=== PATIENT | male | born 1975 | race African-American/Black ===

== ENCOUNTER 2017-09-17 00:44 | Inpatient (IN) ==
[2017-09-17] MEDS ORDERED: ONDANSETRON 4 MG/2 ML VIAL IV STA (02:24)
[2017-09-17] MEDS ORDERED: HYDROmorphone 2 MG/1 ML VIAL IV STA (02:24)
[2017-09-17] MEDS ORDERED: SODIUM CHLORIDE 0.9% 1,000 ML IV STA (02:24)
[2017-09-17 03:19] LABS: Basophils % 0.3 % (0.0-0.8); Eosinophils # 0.2 10*3/uL (0.0-0.87); Eosinophils % 3.7 % (0.00-10.9); Hematocrit 45.4 VOL% (42.0-52.0); Hemoglobin 13.8 GM/DL (14.0-18.0); Immature Granulocytes % 0.3 %; Immature Granulocytes Absolute 0.02 #; Lymphocytes # 2.5 10*3/uL (1.4-4.0); Lymphocytes % 40.7 % (21.2-54.2); Mean Corpuscular HGB Conc 30.4 GM/DL (32-36); Mean Corpuscular Hemoglobin 23 PG (27-34); Mean Platelet Volume 9.7 FL (9.6-12.0); Monocytes # 0.3 10*3/uL (0.11-0.8); Monocytes % 5.3 % (1.7-12.7); Neutrophils # 3.1 10*3/uL (1.4-7.4); Neutrophils % 49.7 % (38.7-73.9); Platelet Count 174 T/CUMM (130-400); Red Blood Count 6.05 MC/CUMM (3.8-5.5); Red Cell Distribution Width 15.7 % (9.3-17.3); White Blood Count 6.2 T/CUMM (4-12)
[2017-09-17] MEDS ORDERED: ONDANSETRON 4 MG/2 ML VIAL ONE (03:33)
[2017-09-17] MEDS ORDERED: HYDROmorphone 2 MG/1 ML VIAL ONE (03:33)
[2017-09-17 04:04] LABS: Alanine Aminotransferase 58 U/L (16-61); Albumin 3.7 G/DL (3.4-5.0); Alkaline Phosphatase 105 U/L (45-117); Aspartate Amino Transferase 26 U/L (0-37); Bilirubin,Total < 0.39 MG/DL (0.2-1.0); Blood Urea Nitrogen 20 MG/DL (7-18); Calcium 9.2 MG/DL (8.5-10.1); Glucose 97 MG/DL (74-106); Osmolality,Calculated 279.5 MOS/KG (273-304); Sodium 139 MMOL/L (136-145); Total Protein 6.5 G/DL (6.4-8.3)
[2017-09-17] MEDS ORDERED: LEVOFLOXACIN INJ 750 MG in PREMIX 1 EACH IV STA (06:01)
[2017-09-17] MEDS ORDERED: metroNIDAZOLE INJ 500 MG in PREMIX 1 EACH IV STA (06:01)
[2017-09-17] MEDS ORDERED: metroNIDAZOLE 500 MG/100 ML PREMIX IV ONE (06:08)
[2017-09-17] MEDS ORDERED: LEVOFLOXACIN INJ 150 ML IV ONE (07:10)
[2017-09-17] MEDS ORDERED: ONDANSETRON 4 MG/2 ML VIAL IV PRN (07:23)
[2017-09-17] MEDS ORDERED: NICOTINE 21 MG/24 HR PATCH TRANSDERM PRN (07:23)
[2017-09-17] MEDS: SODIUM CHLORIDE 0.9% 1,000 ML IV SCH ×2 (07:32→19:53)
[2017-09-17 07:46] LABS: PT Patient Result 10.6 SECS; Partial Thromboplastin Time 30.3 SECS (0-40)
[2017-09-17] MEDS ORDERED: PANTOPRAZOLE 40 MG VIAL IV SCH (09:00)
[2017-09-17] MEDS ORDERED: LISINOPRIL 20 MG TABLET PO SCH (12:30)
[2017-09-17] MEDS: MORPHINE 2 MG/1 ML SYRINGE IV PRN ×3 (15:11→22:33)
[2017-09-17] MEDS: metroNIDAZOLE INJ 500 MG in PREMIX 1 EACH IV SCH ×2 (15:16→19:50)
[2017-09-17] MEDS: amLODIPine 10 MG TABLET PO SCH (15:27)
[2017-09-17] MEDS: ATENOLOL 50 MG TABLET PO SCH (15:33)
[2017-09-17 17:56] LABS: % Iron Saturation 14.8 % (18-50); Ferritin 80.4 ng/ml (26-388)
[2017-09-17 19:04] LABS: Hepatitis A Ab IgM Quant 0.09 Index; Hepatitis A Ab IgM Result Negative (Negative); Hepatitis B Core IgM Quant 0.13 Index; Hepatitis B Core IgM Result Negative (Negative); Hepatitis B Surface Ag Quant < 0.10 Index; Hepatitis B Surface Ag Result Negative (Negative); Hepatitis C Virus Ab Quant 0.16 Index; Hepatitis C Virus Ab Result Negative (Negative)
[2017-09-18] MEDS: metroNIDAZOLE INJ 500 MG in PREMIX 1 EACH IV SCH ×2 (00:55→05:54)
[2017-09-18] MEDS: SODIUM CHLORIDE 0.9% 1,000 ML IV SCH (00:55)
[2017-09-18] MEDS: MORPHINE 2 MG/1 ML SYRINGE IV PRN ×2 (01:33→09:50)
[2017-09-18 04:38] LABS: Basophils % 0.3 % (0.0-0.8); Eosinophils # 0.2 10*3/uL (0.0-0.87); Eosinophils % 2.5 % (0.00-10.9); Hematocrit 39.6 VOL% (42.0-52.0); Immature Granulocytes % 0.1 %; Immature Granulocytes Absolute 0.01 #; Lymphocytes # 2.4 10*3/uL (1.4-4.0); Lymphocytes % 34.5 % (21.2-54.2); Mean Corpuscular HGB Conc 30.3 GM/DL (32-36); Mean Corpuscular Hemoglobin 23 PG (27-34); Mean Corpuscular Volume 75.4 FL (87-102); Mean Platelet Volume 10.8 FL (9.6-12.0); Monocytes # 0.4 10*3/uL (0.11-0.8); Monocytes % 6.2 % (1.7-12.7); Neutrophils % 56.4 % (38.7-73.9); Platelet Count 230 T/CUMM (130-400); Red Blood Count 5.25 MC/CUMM (3.8-5.5); Red Cell Distribution Width 15.1 % (9.3-17.3); White Blood Count 7.1 T/CUMM (4-12)
[2017-09-18 05:05] LABS: Calcium 8.5 MG/DL (8.5-10.1); Osmolality,Calculated 283.1 MOS/KG (273-304)
[2017-09-18] MEDS ORDERED: CIPROFLOXACIN INJ 400 MG in PREMIX 1 EACH IV SCH (07:00)
[2017-09-18] MEDS: amLODIPine 10 MG TABLET PO SCH (09:47)
[2017-09-18] MEDS: CIPROFLOXACIN 500 MG TABLET PO SCH ×2 (09:47→20:55)
[2017-09-18] MEDS: metroNIDAZOLE 500 MG TABLET PO SCH ×3 (09:47→20:55)
[2017-09-18] MEDS: ATENOLOL 50 MG TABLET PO SCH (09:47)
[2017-09-19 08:04] VITALS: BP 141/94
[2017-09-19] MEDS: CIPROFLOXACIN 500 MG TABLET PO SCH (11:08)
[2017-09-19] MEDS: amLODIPine 10 MG TABLET PO SCH (11:08)
[2017-09-19] MEDS: ATENOLOL 50 MG TABLET PO SCH (11:08)
[2017-09-19] MEDS: metroNIDAZOLE 500 MG TABLET PO SCH (11:08)
== END 2017-09-19 11:28 | disposition home or self-care (01) | DRG 395 ==
LOC: N.ED 00:44 → N.EDINP 06:03 → N.3E 09:28
PROVIDERS: ADMIT Internal Medicine Cardiovascular Disease; ATTEND Internal Medicine Cardiovascular Disease

== ENCOUNTER 2018-04-25 14:06 | Inpatient (IN) ==
[2018-04-25 16:11] LABS: Basophils % 0.3 % (0.0-0.8); Eosinophils # 0.3 10*3/uL (0.0-0.87); Eosinophils % 3.9 % (0.00-10.9); Hematocrit 43.9 VOL% (42.0-52.0); Hemoglobin 13.6 GM/DL (14.0-18.0); Immature Granulocytes % 0.1 %; Immature Granulocytes Absolute 0.01 #; Lymphocytes # 1.9 10*3/uL (1.4-4.0); Lymphocytes % 24.9 % (21.2-54.2); Mean Corpuscular Hemoglobin 23 PG (27-34); Mean Corpuscular Volume 72.8 FL (87-102); Monocytes # 0.6 10*3/uL (0.11-0.8); Monocytes % 8.5 % (1.7-12.7); Neutrophils # 4.6 10*3/uL (1.4-7.4); Neutrophils % 62.3 % (38.7-73.9); Platelet Count 236 T/CUMM (130-400); Red Blood Count 6.03 MC/CUMM (3.8-5.5); Red Cell Distribution Width 17.8 % (9.3-17.3); White Blood Count 7.4 T/CUMM (4-12)
[2018-04-25 16:20] LABS: PT Patient Result 10.7 SECS
[2018-04-25 16:31] LABS: Alanine Aminotransferase 34 U/L (16-61); Albumin 3.7 G/DL (3.4-5.0); Alkaline Phosphatase 115 U/L (45-117); Aspartate Amino Transferase 21 U/L (0-37); Bilirubin,Total < 0.39 MG/DL (0.2-1.0); Blood Urea Nitrogen 14 MG/DL (7-18); Calcium 8.5 MG/DL (8.5-10.1); Glucose 93 MG/DL (74-106); Potassium 4.1 MMOL/L (3.5-5.1); Sodium 143 MMOL/L (136-145); Total Protein 7.2 G/DL (6.4-8.3)
[2018-04-25] MEDS ORDERED: MORPHINE 4 MG/1 ML VIAL IV STA (16:51)
[2018-04-25] MEDS ORDERED: ALUM/MAG/SIMETH/LIDO VISC 1:1 30 ML BOTTLE PO STA (16:51)
[2018-04-25] MEDS ORDERED: ASPIRIN 325 MG TABLET PO STA (16:51)
[2018-04-25] MEDS ORDERED: ALBUTEROL/IPRATROPIUM 3 ML NEB RESP TX STA (16:51)
[2018-04-25] MEDS ORDERED: methylPREDNISolone SOD SUC 125 MG/2 ML VIAL IV STA (16:51)
[2018-04-25] MEDS ORDERED: NITROGLYCERIN 2% OINT 1 INCH/GM PACK TOP STA (16:51)
[2018-04-25] MEDS ORDERED: FUROSEMIDE 40 MG/4 ML VIAL IV STA (16:51)
[2018-04-25] MEDS ORDERED: ONDANSETRON 4 MG/2 ML VIAL IV STA (16:51)
[2018-04-25] MEDS ORDERED: hydrALAZINE 20 MG/1 ML VIAL IV STA ×2 (16:53→17:21)
[2018-04-25] MEDS ORDERED: methylPREDNISolone SOD SUC 40 MG/1 ML VIAL IV SCH (18:30)
[2018-04-25] MEDS: ALBUTEROL/IPRATROPIUM 3 ML NEB RESP TX SCH (19:34)
[2018-04-25 19:52] LABS: Risk Ratio 4.37
[2018-04-25] MEDS: MONTELUKAST 10 MG TABLET PO SCH (20:45)
[2018-04-25] MEDS: methylPREDNISolone SOD SUC 125 MG/2 ML VIAL IV SCH (20:45)
[2018-04-25] MEDS: cefTRIAXone 1,000 MG in SYRINGE 1 EACH IV SCH (20:45)
[2018-04-25] MEDS ORDERED: CARVEDILOL 6.25 MG TABLET PO SCH (21:00)
[2018-04-25] MEDS ORDERED: ALBUTEROL/IPRATROPIUM 3 ML NEB RESP TX ONE (22:53)
[2018-04-25] MEDS ORDERED: ONDANSETRON 4 MG/2 ML VIAL IV PRN (22:54)
[2018-04-25] MEDS ORDERED: PNEUMOCOCCAL VACCINE (23 VALENT) 0.5 ML VIAL IM ONE (23:57)
[2018-04-26] MEDS ORDERED: cloNIDine 0.1 MG TABLET PO PRN (00:45)
[2018-04-26] MEDS: ALBUTEROL/IPRATROPIUM 3 ML NEB RESP TX SCH ×4 (01:00→19:56)
[2018-04-26] MEDS: ACETAMINOPHEN 325 MG TABLET PO PRN ×2 (02:06→16:38)
[2018-04-26] MEDS: methylPREDNISolone SOD SUC 125 MG/2 ML VIAL IV SCH ×4 (02:06→21:05)
[2018-04-26 08:30] LABS: Basophils % 0.1 % (0.0-0.8); Hematocrit 46.3 VOL% (42.0-52.0); Hemoglobin 14.1 GM/DL (14.0-18.0); Immature Granulocytes % 0.5 %; Immature Granulocytes Absolute 0.05 #; Lymphocytes # 0.8 10*3/uL (1.4-4.0); Lymphocytes % 8.9 % (21.2-54.2); Mean Corpuscular HGB Conc 30.5 GM/DL (32-36); Mean Corpuscular Hemoglobin 22 PG (27-34); Monocytes # 0.1 10*3/uL (0.11-0.8); Monocytes % 0.8 % (1.7-12.7); Neutrophils # 8.2 10*3/uL (1.4-7.4); Neutrophils % 89.7 % (38.7-73.9); Platelet Count 262 T/CUMM (130-400); Red Blood Count 6.43 MC/CUMM (3.8-5.5); Red Cell Distribution Width 18.1 % (9.3-17.3); White Blood Count 9.1 T/CUMM (4-12)
[2018-04-26 09:00] LABS: Alanine Aminotransferase 36 U/L (16-61); Albumin 3.6 G/DL (3.4-5.0); Alkaline Phosphatase 115 U/L (45-117); Aspartate Amino Transferase 16 U/L (0-37); Bilirubin,Total < 0.39 MG/DL (0.2-1.0); Blood Urea Nitrogen 13 MG/DL (7-18); Calcium 9.4 MG/DL (8.5-10.1); Glucose 173 MG/DL (74-106); Osmolality,Calculated 280.5 MOS/KG (273-304); Potassium 4.1 MMOL/L (3.5-5.1); Sodium 139 MMOL/L (136-145); Total Protein 7.6 G/DL (6.4-8.3)
[2018-04-26] MEDS ORDERED: CARVEDILOL 12.5 MG TABLET PO SCH (09:00)
[2018-04-26] MEDS: FUROSEMIDE 40 MG/4 ML VIAL IV SCH (09:10)
[2018-04-26] MEDS: ASPIRIN EC 81 MG TABLET PO SCH (09:11)
[2018-04-26] MEDS: NICOTINE 21 MG/24 HR PATCH TRANSDERM SCH (09:12)
[2018-04-26] MEDS: CARVEDILOL 25 MG TABLET PO SCH ×2 (09:20→21:05)
[2018-04-26] MEDS ORDERED: traMADol 50 MG TABLET PO ONE (14:00)
[2018-04-26] MEDS: CHLORTHALIDONE 25 MG TABLET PO SCH (14:26)
[2018-04-26] MEDS: PANTOPRAZOLE 40 MG TABLET PO SCH (16:37)
[2018-04-26] MEDS: HEPARIN 5,000 UNIT/1 ML VIAL SUBCUT SCH (17:40)
[2018-04-26] MEDS: MONTELUKAST 10 MG TABLET PO SCH (21:05)
[2018-04-26] MEDS: cefTRIAXone 1,000 MG in SYRINGE 1 EACH IV SCH (21:05)
[2018-04-27] MEDS: ALBUTEROL/IPRATROPIUM 3 ML NEB RESP TX SCH ×4 (01:45→19:16)
[2018-04-27] MEDS: methylPREDNISolone SOD SUC 125 MG/2 ML VIAL IV SCH ×4 (02:20→21:11)
[2018-04-27] MEDS: HEPARIN 5,000 UNIT/1 ML VIAL SUBCUT SCH ×3 (02:20→18:54)
[2018-04-27 05:47] LABS: Basophils % 0.1 % (0.0-0.8); Hematocrit 48.3 VOL% (42.0-52.0); Hemoglobin 14.9 GM/DL (14.0-18.0); Immature Granulocytes % 0.6 %; Immature Granulocytes Absolute 0.08 #; Lymphocytes # 1.1 10*3/uL (1.4-4.0); Lymphocytes % 7.7 % (21.2-54.2); Mean Corpuscular HGB Conc 30.8 GM/DL (32-36); Mean Corpuscular Hemoglobin 22 PG (27-34); Mean Platelet Volume 10.6 FL (9.6-12.0); Monocytes # 0.4 10*3/uL (0.11-0.8); Monocytes % 2.8 % (1.7-12.7); Neutrophils # 12.5 10*3/uL (1.4-7.4); Neutrophils % 88.8 % (38.7-73.9); Platelet Count 329 T/CUMM (130-400); Red Cell Distribution Width 18.8 % (9.3-17.3); White Blood Count 14.1 T/CUMM (4-12)
[2018-04-27 06:04] LABS: Albumin 4.1 G/DL (3.4-5.0); Bilirubin,Total 0.6 MG/DL (0.2-1.0); Calcium 9.4 MG/DL (8.5-10.1); Osmolality,Calculated 281.5 MOS/KG (273-304); Potassium 3.9 MMOL/L (3.5-5.1); Total Protein 8.1 G/DL (6.4-8.3)
[2018-04-27] MEDS: PANTOPRAZOLE 40 MG TABLET PO SCH (09:09)
[2018-04-27] MEDS: CARVEDILOL 25 MG TABLET PO SCH ×2 (09:09→21:11)
[2018-04-27] MEDS: CHLORTHALIDONE 25 MG TABLET PO SCH (09:09)
[2018-04-27] MEDS: ASPIRIN EC 81 MG TABLET PO SCH (09:09)
[2018-04-27] MEDS: FUROSEMIDE 40 MG/4 ML VIAL IV SCH (09:16)
[2018-04-27] MEDS: NICOTINE 21 MG/24 HR PATCH TRANSDERM SCH (09:21)
[2018-04-27] MEDS: ACETAMINOPHEN 325 MG TABLET PO PRN (09:21)
[2018-04-27] MEDS ORDERED: cefTRIAXone 1,000 MG VIAL IM SCH (11:30)
[2018-04-27] MEDS ORDERED: AZITHROMYCIN INJ 500 MG in SODIUM CHLORIDE 0.9% 250 ML IV SCH (13:00)
[2018-04-27] MEDS: cefTRIAXone 1,000 MG in SYRINGE 1 EACH IV SCH (13:26)
[2018-04-27] MEDS: traMADol 50 MG TABLET PO PRN (15:00)
[2018-04-27] MEDS: MONTELUKAST 10 MG TABLET PO SCH (21:11)
[2018-04-28] MEDS: ALBUTEROL/IPRATROPIUM 3 ML NEB RESP TX SCH ×2 (00:16→06:59)
[2018-04-28] MEDS: traMADol 50 MG TABLET PO PRN ×2 (00:33→08:10)
[2018-04-28] MEDS: cefTRIAXone 1,000 MG in SYRINGE 1 EACH IV SCH (00:33)
[2018-04-28] MEDS: HEPARIN 5,000 UNIT/1 ML VIAL SUBCUT SCH ×2 (03:31→11:53)
[2018-04-28] MEDS: methylPREDNISolone SOD SUC 125 MG/2 ML VIAL IV SCH ×2 (03:31→08:11)
[2018-04-28 08:09] VITALS: BP 146/92
[2018-04-28] MEDS: CHLORTHALIDONE 25 MG TABLET PO SCH (08:10)
[2018-04-28] MEDS: CARVEDILOL 25 MG TABLET PO SCH (08:10)
[2018-04-28] MEDS: ASPIRIN EC 81 MG TABLET PO SCH (08:10)
[2018-04-28] MEDS: PANTOPRAZOLE 40 MG TABLET PO SCH (08:10)
[2018-04-28] MEDS: NICOTINE 21 MG/24 HR PATCH TRANSDERM SCH (08:11)
[2018-04-28] MEDS: FUROSEMIDE 40 MG/4 ML VIAL IV SCH (08:12)
[2018-04-28] MEDS ORDERED: MAGNESIUM HYDROXIDE SUSP 30 ML UDCUP PO ONE (10:39)
[2018-04-28] MEDS ORDERED: LACTULOSE 20 GM/30 ML UDCUP PO ONE (10:39)
[2018-04-28] MEDS ORDERED: BISACODYL 5 MG TABLET PO ONE (10:40)
== END 2018-04-28 11:40 | disposition home or self-care (01) | DRG 305 ==
LOC: N.ED 14:06 → N.EDINP 17:27 → SUATTDRO 17:27 → N.EDINP 19:27 → N.TELES 19:49
PROVIDERS: ATTEND Internal Medicine